=== PATIENT | female | born 1960 | race Asian ===

== ENCOUNTER → 2016-06-28 | Outpatient (CLI) | payer OTHER ==
[~2016-06-28] MED LIST: LEVO25TA PO; MULTTAB58 PO
[2016-06-28 12:41] LABS: BASO % 0.6 %; BASO ABS # 0.04 K/uL (0-0.2); COMPLETE YES; EOS % 3.1 %; HEMATOCRIT 41.8 % (37-47); IG% 0.1 %; LYMPH % 47.5 %; LYMPH ABS # 3.21 K/uL (1.2-3.4); MEAN CELL VOLUME 85.8 fL (80-100); MEAN CORPUSCULAR HEMOGLOBIN 30.8 pg (25-34); MEAN CORPUSCULAR HGB CONC 35.9 g/dl (32-36); MEAN PLATELET VOLUME 11.7 fL (7.4-10.4); MONO % 5.2 %; NEUT % 43.5 %; PLATELET COUNT 234 K/uL (130-400); RED BLOOD COUNT 4.87 M/uL (4.2-5.4); WHITE BLOOD COUNT 6.76 K/uL (4.8-10.8)
[2016-06-28 14:12] LABS: CALCIUM 9.9 mg/dl (8.5-10.1)
[2016-06-28 14:31] LABS: CHLORIDE 104 mmol/L (98-107); POTASSIUM 4.2 mmol/L (3.5-5.1); SODIUM 141 mmol/L (136-145)
[2016-06-28 14:49] LABS: BLOOD UREA NITROGEN 13 mg/dl (7-18); BUN/CREATININE RATIO 18.9 (10-20); CARBON DIOXIDE 26 mmol/L (21-32); CHOLESTEROL 193 mg/dl (0-200); GLUCOSE 92 mg/dl (70-99); URIC ACID 4.7 mg/dl (2.6-7.2)
[2016-06-28 14:51] LABS: ALB/GLOB RATIO 1.1 (0.9-2); ALKALINE PHOSPHATASE 99 U/L (45-117); ALT/SGPT 36 U/L (12-78); AST/SGOT 26 U/L (15-37); CHOLESTEROL/HDL RATIO 5.1; HDL CHOLESTEROL 38 mg/dl; LDL CHOLESTEROL CALCULATED 115 mg/dl; TRIGLYCERIDES 200 mg/dl (0-150); VERY LOW DENSITY LIPOPROT CALC 40 mg/dl
== END | disposition home or self-care (01) ==
LOC: C.LAB1850 11:21
PROVIDERS: ATTEND Nurse Practitioner Adult Health
DX: Z00.00 Encounter for general adult medical examination without abnormal findings (principal); E03.9 Hypothyroidism, unspecified; M79.676 Pain in unspecified toe(s); Z11.59 Encounter for screening for other viral diseases

== ENCOUNTER → 2016-07-11 | Outpatient (CLI) | payer OTHER | END | disposition home or self-care (01) | LOC: C.LAB 11:39 | PROVIDERS: ATTEND Nurse Practitioner Adult Health | DX: E03.9 Hypothyroidism, unspecified (principal) ==

== ENCOUNTER 2016-10-23 13:20 | Emergency (ER) | payer OTHER ==
[~2016-10-23] VITALS: Ht 157.5 cm; Wt 62.0 kg
[~2016-10-23 13:20] MED LIST changes: -LEVO25TA PO
[2016-10-23 13:24] VITALS: TEMP 36.6; Ht 157.5 cm; Wt 62.0 kg
[2016-10-23] MEDS ORDERED: MoRPHine SULFATE 4 MG/ML 1 ML CARP\\VIAL IV STA ×2 (13:44→17:11)
[2016-10-23] MEDS ORDERED: SODIUM CHLORIDE 0.9% 1000ML 1,000 ML IV STA ×2 (13:44→20:00)
--- NOTE | 2016-10-23 13:58 | EMERGENCY ROOM VISIT NOTE ---
History First contact with patient: 13:32 Chief Complaint: HEADACHE Stated Complaint: HEADACHE History of Present Illness The patient is a 56 year old female who presents to the Emergency Room with complaints of severe headache that started at 11 PM last night. The patient does not speak Mohawk well, she declined the use of an production team leader and her son has served as her production team leader at the bedside. The patient reports that the headache started very suddenly when she went outside last night, describes the pain as intense, starting in the back of her head and radiating to the top of the head, worse with movement of the neck, better with rest, 10/24. She did take ibuprofen last night shortly after the headache started, with no improvement, though she does state her headache is slightly improved from last night. Her son states that last night when her headache started she was sweating all over. He took her blood pressure and it was 140/80, which is normal for her. She has not had any associated symptoms of blurry or double vision, nausea or vomiting, dizziness or passing out, neck pain, fevers or chills. She reports history of similar headaches for the past 9 years that she attributes to the cold weather, however she states these headaches usually only last a few minutes to an hour, this is the worst headache that she has ever had. Her son states that she had a similar bad headache in 2007, where she had a workup with brain imaging and everything was normal. She denies any chest pain, shortness of breath, abdominal pain, back pain, dizziness, urinary symptoms. Review of Systems A complete 10 point review of systems was reviewed with the patient with pertinent positives and negatives as per history of present illness. All else were negative. Past Medical/Surgical History Hypothyroidism Social History Smoking Status: Never Smoker Alcohol Use: none Drug Use: none Current/Historical Medications Scheduled Levothyroxine Sodium (Synthroid), 25 MCG PO DAILY Physical Exam Vital Signs Date Time Temp Pulse Resp B/P (MAP) Pulse Ox O2 Delivery O2 Flow Rate FiO2 10/23/16 20:43 69 20 125/75 91 Room Air 10/23/16 18:43 87 22 147/89 97 Room Air 10/23/16 17:22 95 20 167/102 95 Room Air 10/23/16 15:43 70 17 140/78 98 Room Air 10/23/16 15:43 72 10/23/16 15:43 97 Room Air 10/23/16 13:24 36.6 107 18 145/95 97 Room Air Physical Exam CONSTITUTIONAL: No acute distress, but does appear uncomfortable. Well appearing and well nourished. Alert and oriented X 4 with normal affect. HEENT: Normocephalic, atraumatic. Pupils equal, round and reactive to light, EOMI, no nystagmus. No papilledmema noted. TMs normal. Pharynx normal. Moist mucous membranes. NECK: Supple, no rigidity, but does have bilateral posterior neck tenderness and increased pain with range of motion of the neck. RESPIRATORY: Clear to auscultation bilaterally with no wheezing, crackles, rhonchi or stridor. Equal expansion bilaterally. CARDIOVASCULAR: Regular rate and rhythm with no murmurs, rubs or gallops. Normal peripheral perfusion. No edema. GASTROINTESTINAL: Soft, nontender, nondistended. Bowel sounds present in all quadrants. MUSCULOSKELETAL: Full range of motion of all joints without discomfort. INTEGUMENTARY: No rash or other significant dermatologic conditions noted. NEUROLOGIC: Cranial nerves II-XII grossly intact. No focal neurologic deficits noted. Normal strength, normal sensation, normal coordination, normal speech. Negative facial droop, negative pronator drift. Medical Decision & Procedures ER Provider Diagnostic Interpretation: HEAD WITHOUT CONTRAST (CT) CT DOSE: 601.98 mGy.cm HISTORY: Mental status change Evaluate for hemorrhage or pathology TECHNIQUE: Multiaxial CT images of the head were performed without the use of intravenous contrast. A dose lowering technique was utilized adhering to the principles of ALARA. Comparison: None. Findings: The paranasal sinuses and mastoid air cells are clear. The calvarium and skull base are intact. The ventricles and sulci are within normal limits. There is no mass, hematoma, midline shift, or acute infarct. Impression: No acute intracranial abnormality. ----- HEAD ANGIO WITH CONTRAST CLINICAL HISTORY: ANGIO HEAD WITH PER PABLO-C PERIANESTHESIA MANAGER mental status change. Headache. TECHNIQUE: Transaxial acquisition with multi axial reformatted images COMPARISON STUDY: None FINDINGS: All major intracranial vessels are unremarkable. There is no evidence for aneurysm or dissection. There is no significant stenotic change. All major structures the anterior middle and posterior cerebral circulation are unremarkable. Vertebral basilar system is unremarkable. IMPRESSION: Negative study Laboratory Results 10/23/16 14:05 Red Blood Count 4.96, Mean Corpuscular Volume 83.9, Mean Corpuscular Hemoglobin 29.4, Mean Corpuscular Hemoglobin Concent 35.1, Mean Platelet Volume 11.5, Neutrophils (%) (Auto) 65.8, Lymphocytes (%) (Auto) 28.6, Monocytes (%) (Auto) 4.4, Eosinophils (%) (Auto) 0.7, Basophils (%) (Auto) 0.3, Neutrophils # (Auto) 7.02, Lymphocytes # (Auto) 3.05, Monocytes # (Auto) 0.47, Eosinophils # (Auto) 0.08, Basophils # (Auto) 0.03 10/23/16 14:05 Test 10/23/16 14:03 10/23/16 14:05 10/23/16 17:30 Bedside Glucose 114 mg/dl (70-90) White Blood Count 10.67 K/uL (4.8-10.8) Red Blood Count 4.96 M/uL (4.2-5.4) Hemoglobin 14.6 g/dL (12.0-16.0) Hematocrit 41.6 % (37-47) Mean Corpuscular Volume 83.9 fL (80-100) Mean Corpuscular Hemoglobin 29.4 pg (25-34) Mean Corpuscular Hemoglobin Concent 35.1 g/dl (32-36) Platelet Count 267 K/uL (130-400) Mean Platelet Volume 11.5 fL (7.4-10.4) Neutrophils (%) (Auto) 65.8 % Lymphocytes (%) (Auto) 28.6 % Monocytes (%) (Auto) 4.4 % Eosinophils (%) (Auto) 0.7 % Basophils (%) (Auto) 0.3 % Neutrophils # (Auto) 7.02 K/uL (1.4-6.5) Lymphocytes # (Auto) 3.05 K/uL (1.2-3.4) Monocytes # (Auto) 0.47 K/uL (0.11-0.59) Eosinophils # (Auto) 0.08 K/uL (0-0.5) Basophils # (Auto) 0.03 K/uL (0-0.2) RDW Standard Deviation 36.3 fL (36.4-46.3) RDW Coefficient of Variation 12.0 % (11.5-14.5) Immature Granulocyte % (Auto) 0.2 % Immature Granulocyte # (Auto) 0.02 K/uL (0.00-0.02) Prothrombin Time 10.3 SECONDS (9.0-12.0) Prothromb Time International Ratio 1.0 (0.9-1.1) Activated Partial Thromboplast Time 25.4 SECONDS (21.0-31.0) Partial Thromboplastin Ratio 1.0 Anion Gap 6.0 mmol/L (3-11) Est Creatinine Clear Calc Drug Dose 73.4 ml/min Estimated GFR () 104.0 Estimated GFR (Non- 89.7 BUN/Creatinine Ratio 16.6 (10-20) Calcium Level 9.2 mg/dl (8.5-10.1) Troponin I < 0.015 ng/ml (0-0.045) CSF Color RED CSF Appearance CLOUDY CSF WBC 248 /uL (0-5) CSF RBC 888229 /uL (0) CSF Xanthrochromic NO XANTHOCHROMIA CSF Cell Count Tube # 4 CSF Mononuclear WBCs % 49.8 % CSF Polynuclear WBCs (%) 50.2 % CSF Chemistry Tube # 2 CSF Glucose 58 mg/dl (40-70) CSF Total Protein 165.7 mg/dl (15.0-45.0) Medications Administered Medications (Trade) Dose Ordered Sig/Zbigniew Route Start Time Stop Time Status Last Admin Dose Admin Sodium Chloride 1,000 ml @ 999 mls/hr Q1H1M STAT IV 10/23/16 13:44 10/23/16 14:44 DC 10/23/16 13:44 999 MLS/HR Morphine Sulfate (MoRPHine SULFATE INJ) 4 mg NOW STAT IV 10/23/16 13:44 10/23/16 13:47 DC 10/23/16 14:24 4 MG Ondansetron HCl (Zofran Inj) 4 mg NOW STAT IV 10/23/16 15:29 10/23/16 15:30 DC 10/23/16 15:42 4 MG Morphine Sulfate (MoRPHine SULFATE INJ) 4 mg NOW STAT IV 10/23/16 17:11 10/23/16 17:13 DC 10/23/16 17:16 4 MG Ondansetron HCl (Zofran Inj) 4 mg NOW STAT IV 10/23/16 18:38 10/23/16 18:39 DC 10/23/16 18:41 4 MG Dexamethasone Sodium Phosphate (Decadron Inj) 10 mg NOW ONCE IV 10/23/16 20:00 10/23/16 20:01 DC 10/23/16 20:04 10 MG Ceftriaxone Sodium 2000 mg/ Dextrose 70 ml @ 100 mls/hr ONE STAT IV 10/23/16 19:47 10/23/16 20:28 DC 10/23/16 20:32 100 MLS/HR Vancomycin HCl 1250 mg/Sodium Chloride 525 ml @ 200 mls/hr ONE STAT IV 10/23/16 19:47 10/23/16 22:24 10/23/16 20:32 200 MLS/HR Acyclovir Sodium 650 mg/Dextrose 113 ml @ 110 mls/hr Q8H IV 10/23/16 20:00 10/25/16 19:59 10/23/16 20:32 110 MLS/HR Sodium Chloride 1,000 ml @ 125 mls/hr Q8H STAT IV 10/23/16 20:00 10/24/16 03:59 10/23/16 20:33 125 MLS/HR Promethazine HCl 12.5 mg/Sodium Chloride 50.5 ml @ 202 mls/hr 2030 ONCE IV 10/23/16 20:30 10/23/16 20:44 DC 10/23/16 20:32 202 MLS/HR Procedure Lumbar puncture Indication: Sudden severe headache, evaluate for SAH Verbal consent was obtained after the risks and benefits were explained, including but not limited to bleeding/clotting, scarring, infection, pain, and worsening headache. At this time, the risks of the procedure are less than the risks of NOT performing the procedure. A time out was taken and the correct patient and site identified. The patient was placed in the right lateral decubitus position with the lower spine in a flexed position. The lower back was prepped with Betadine and draped in the standard fashion. The intervertebral space was identified, anesthetized locally with 1% buffered lidocaine. The procedure was performed by myself with Dr. Florentino directly supervising. A 22G needle was inserted through the skin between L4 and L5, the needle was slowly advanced until the return of fluid was achieved. There was a small amount of red fluid return that did not flow easily. Attempts at repositioning the needle were unsuccessful. A new spinal needle was obtained, and Dr. Florentino attempted LP at the L3-L4 space, again unsuccessful after multiple attempts. The stylus was replaced prior to removing the needle, and the needle was removed. The patient was then placed in the left lateral decubitus position, repeat Betadine prep and sterile draping in the sterile fashion. Dr. Florentino placed the 22G needle in the L4-L5 space, with return of CSF. Opening pressure was not measured due to difficulty of access. 7 mL of hazy, blood tinged cerebral spinal fluid drained and was collected. The fluid did not clear on subsequent tube collections, and remained hazy and blood tinged. Fluid sent to the lab for evaluation protein, glucose, cell count, culture and sensitivity. The stylus was replaced prior to removing the needle, the needle was then removed and the skin was cleaned with sterile gauze and saline, and a band-aid was placed over the insertion site. The patient tolerated the procedure well and there were no known complications. Patient was instructed to remain in a supine position for at least one hour. ECG Indication: diaphoresis Rate (beats per minute): 81 Rhythm: normal sinus Findings: no acute ischemic change, no ectopy Comparison ECG Date: no prior available Medical Decision CC: Patient presenting with complaint of headache Interpretation of Labs: No leukocytosis, no anemia, no significant electrolyte abnormalities, normal renal function, PTT/PT/INR within normal limits. Negative UA. Negative troponin. Differential Diagnosis: Includes, but not limited to acute intracranial bleed, subarachnoid hemorrhage, CVA, mass or mass effect, tension headache, migraine, among others. Medication Reconciliation: I attest that I have personally reviewed the patient' s current medication list. Vital signs review: I reviewed the patient's vital signs and interpret them as follows: T: Afebrile; BP: Hypertensive; HR: Tachycardic; RR: Within normal limits; Pulse Ox: Within normal limits on room air. Summary: Patient was evaluated at bedside, history of physical exam performed. Patient is alert and in no acute distress, but does appear to be in pain. Her son serves as jacquard twine polisher operator. Neurologic exam is fully intact, no focal deficits. The patient does have tenderness of the upper posterior neck muscles at the base of the occiput, which she states reproduces her headache. Her headache is also worsened with moving her neck side to side. There is no nuchal rigidity or meningismus. This is a 56-year-old pleasant female with no diagnosed history of headaches, who describes a sudden onset of severe headache that is the worst headache she has ever experienced. Orders were placed at bedside for labs, UA, IV fluids for hydration, IV morphine for pain, EKG, CT head to evaluate for intracranial hemorrhage. Patient discussed with Dr. Florentino, who also evaluated the patient and agrees with my assessment and plan. Labs reviewed as above, fairly unremarkable. EKG reviewed, shows normal sinus rhythm with no ischemic changes. CT head without contrast is negative. She did develop symptoms of nausea and vomiting multiple times, she was given IV Zofran for this. I discussed with the patient and her son regarding performing a lumbar puncture to rule out subarachnoid hemorrhage. They agreed to the procedure. Lumbar puncture performed without any significant complications, but did require multiple attempts. See procedure note for details. Due to persistently bloody appearing CSF with minimal clearing during collection , concern for SAH remains high. CTA of the brain with IV contrast ordered. CSF samples concerning for large amounts of RBCs, unclear whether this may represent SAH versus traumatic LP. There is also notably a large amount of WBC' s and elevated protein on CSF, concerning for infection. CTA of the brain reviewed, no aneurysm or intracranial hemorrhage noted. I discussed on the phone with Dr. Bone, neurology, regarding the patient's clinical story, symptoms, and workup thus far. He agrees that she seems very concerning for a possible SAH, and believes she should be transferred to a higher level of care facility for definitive diagnosis with conventional arteriogram. He also agrees with our plan to cover empirically for bacterial and HSV meningitis. I spoke with the transfer center at [facility], Dr. Pritchett, Neurology, who agrees to accept the patient as a direct admission. Patient reassessed multiple times throughout ED stay, she continues to complain of some headache, but states that it is improved from when she arrived after morphine, currently rates as 5/10 as long as she keeps her head still. She has had some continued intermittent nausea/vomiting, she was treated with IV Phenergan for this. The patient and her family members were updated on all results and plan for transfer. They verbalized understanding and are agreeable to this plan. Patient will be kept NPO, maintenance IV fluids were ordered. Patient was stable at time of transfer. Head Trauma GCS Score: 15 Medication Reconcilliation Current Medication List: was personally reviewed by me Blood Pressure Screening Patient's blood pressure: Elevated blood pressure Patient is being transferred for inpatient admission Impression Primary Impression: Headache Additional Impression: CSF abnormal Critical Care I have personally spent greater than 30 minutes of critical care time in the direct management of this patient. This includes bedside care, interpretation of diagnostic studies, and testing, discussion with consultants, patient, and family members, and other required patient management activities. This 30 minutes is in excess of all separately billable procedures. Departure Information Dispostion Transfer Acute Care Facility Condition FAIR Referrals Amanda Castellon C.R.N.P. (PCP) Patient Instructions My [facility] Problem Qualifiers Primary Impression: Headache Headache type: unspecified Headache chronicity pattern: acute headache Intractability: intractable Qualified Codes: R51 - Headache
[2016-10-23] MEDS ORDERED: LEVO25TA PO (14:04)
[2016-10-23 14:21] LABS: BASO % 0.3 %; BASO ABS # 0.03 K/uL (0-0.2); COMPLETE YES; EOS % 0.7 %; HEMATOCRIT 41.6 % (37-47); IG% 0.2 %; LYMPH % 28.6 %; LYMPH ABS # 3.05 K/uL (1.2-3.4); MEAN CELL VOLUME 83.9 fL (80-100); MEAN CORPUSCULAR HEMOGLOBIN 29.4 pg (25-34); MEAN CORPUSCULAR HGB CONC 35.1 g/dl (32-36); MEAN PLATELET VOLUME 11.5 fL (7.4-10.4); MONO % 4.4 %; NEUT % 65.8 %; PLATELET COUNT 267 K/uL (130-400); RED BLOOD COUNT 4.96 M/uL (4.2-5.4); WHITE BLOOD COUNT 10.67 K/uL (4.8-10.8)
[2016-10-23 14:35] LABS: BUN/CREATININE RATIO 16.6 (10-20); CALCIUM 9.2 mg/dl (8.5-10.1); CREATININE 0.75 mg/dl (0.60-1.20); POTASSIUM 3.6 mmol/L (3.5-5.1); PROTHROMBIN TIME (PATIENT) 10.3 SECONDS (9.0-12.0)
[2016-10-23] MEDS ORDERED: ONDANSETRON INJ 2 MG/ML 2 ML VIAL IV STA ×2 (15:29→18:38)
--- NOTE | 2016-10-23 15:30 | DIAGNOSTIC IMAGING REPORT ---
HEAD WITHOUT CONTRAST (CT) CT DOSE: 601.98 mGy.cm HISTORY: Mental status change Evaluate for hemorrhage or pathology TECHNIQUE: Multiaxial CT images of the head were performed without the use of intravenous contrast. A dose lowering technique was utilized adhering to the principles of ALARA. Comparison: None. Findings: The paranasal sinuses and mastoid air cells are clear. The calvarium and skull base are intact. The ventricles and sulci are within normal limits. There is no mass, hematoma, midline shift, or acute infarct. Impression: No acute intracranial abnormality. The above report was generated using voice recognition software. It may contain grammatical, syntax or spelling errors. Electronically signed by: Jun De La O M.D. 10/23/2016 3:28 PM Dictated Date/Time: 10/23/2016 3:28 PM
[2016-10-23 15:43] VITALS: O2SAT 97
[2016-10-23] MEDS ORDERED: XYLOCAINE 1%/SOD BICARB 20 ML VIAL INFIL ONE (16:14)
--- NOTE | 2016-10-23 17:24 | EMERGENCY ROOM VISIT NOTE ---
ED Visit Note First contact with patient: 13:32 The patient was seen and examined with CELESTINE Landa. I agree with the history, physical and findings. Please see the note for disposition and details. Patient's history was very concerning for headache. CT imaging was negative. Lumbar puncture was felt to be necessary to further elucidate the cause. The patient consented to the procedure. Initially Erin attempted the procedure but was unsuccessful. I assisted and after repositioning the patient had the lumbar puncture performed. CSF was obtained however it was bloody. The patient was treated with morphine, Zofran, and Phenergan. The CSF studies showed significant amount of red blood cells. She did have white blood cell elevation and a significant elevation of protein. Atraumatic tap was possible as there were several attempts however she had a significant elevation of the red blood cells. This did raise concerns for possible subarachnoid. Subarachnoid was possible by history. Neurology was consulted and antibiotics/ antivirals were ordered. Neurology felt further workup for subarachnoid by history and the blood in the CSF was deemed appropriate. During the laboratory analysis a CTA was performed and did not reveal any evidence of aneurysm. The chance is small however given the findings and history she will need further evaluation. After discussion with the patient and family they agreed to transfer to a tertiary care facility. Given the patient's insurance and need for the closest available and appropriate facility [facility] was chosen. Consultation was made with [facility] and the patient was accepted for transfer. Prior to transfer the patient did receive Decadron, Rocephin, vancomycin and acyclovir. Lumbar Puncture Indication: Headache. Verbal consent was obtained . At this time, the risks of the procedure are less than the risks of NOT performing the procedure. A time out was taken and the correct patient and site identified. The patient was placed in the left lateral position and the back was prepped with betadine and draped in the standard fashion. The L3 intervertebral space was identified, anesthetized locally with 1 % lidocaine without epinephrine, and the spinal needle was inserted through the skin with the bevel parallel to the dural fibers. The needle was carefully advanced into the lumbar cistern and 4 tubes of bloody CSF was obtained. The stylet was replaced and the needle was removed. A bandaid was placed and the patient was placed in the supine position. The patient tolerated the procedure well and there were no complications. Erin and I have personally spent greater than 30 minutes of critical care time in the direct management of this patient. This includes bedside care, interpretation of diagnostic studies, and testing, discussion with consultants, patient, and family members, and other required patient management activities. This 30 minutes is in excess of all separately billable procedures.
[2016-10-23] MEDS ORDERED: OPTIRAY 320 IV PRN (18:30)
[2016-10-23] MEDS ORDERED: ONDANSETRON INJ 2 MG/ML 2 ML VIAL ONE (18:39)
[2016-10-23 18:45] LABS: CSF APPEARANCE CLOUDY; CSF COLOR RED; CSF MONONUC RELAT 49.8 %
[2016-10-23 18:46] LABS: CSF APPEARANCE CLOUDY; CSF COLOR RED; CSF MONONUC RELAT 47.4 %; CSF XANTHOCHROMIC NO XANTHOCHROMIA
[2016-10-23 18:47] LABS: CSF TOTAL PROTEIN 165.7 mg/dl (15.0-45.0)
[2016-10-23 18:57] LABS: CSF CHEMISTRY TUBE # 2
--- NOTE | 2016-10-23 19:03 | DIAGNOSTIC IMAGING REPORT ---
HEAD ANGIO WITH CONTRAST CLINICAL HISTORY: ANGIO HEAD WITH PER PABLO-C UTILITY WORKER mental status change. Headache. TECHNIQUE: Transaxial acquisition with multi axial reformatted images COMPARISON STUDY: None FINDINGS: All major intracranial vessels are unremarkable. There is no evidence for aneurysm or dissection. There is no significant stenotic change. All major structures the anterior middle and posterior cerebral circulation are unremarkable. Vertebral basilar system is unremarkable. IMPRESSION: Negative study The above report was generated using voice recognition software. It may contain grammatical, syntax or spelling errors. Electronically signed by: Jun De La O M.D. 10/23/2016 7:01 PM Dictated Date/Time: 10/23/2016 6:56 PM
[2016-10-23] MEDS ORDERED: VANCOMYCIN INJ 1,250 MG in SODIUM CHLORIDE 0.9% 500ML 500 ML IV STA (19:47)
[2016-10-23] MEDS ORDERED: CEFTRIAXONE SOD INJ 2,000 MG in DEXTROSE 5% 50ML 50 ML IV STA (19:47)
[2016-10-23] MEDS ORDERED: ACYCLOVIR SOD INJ 650 MG in DEXTROSE 5% 100ML 100 ML IV SCH (20:00)
[2016-10-23] MEDS ORDERED: DEXAMETHASONE SOD INJ 10 MG/ML VIAL IV ONE (20:00)
[2016-10-23] MEDS ORDERED: NURSING VERBAL MED ORDER ONE (20:15)
[2016-10-23] MEDS ORDERED: PROMETHAZINE HCL INJ 12.5 MG in SODIUM CHLORIDE 0.9% 50ML 50 ML IV ONE (20:30)
[2016-10-24] MEDS ORDERED: LABETALOL HCL IV 5 MG/ML 20ML IV ONE (02:37)
[2016-10-24 03:15] VITALS: BP 102/66; PULSE 77; O2SAT 98
== END 2016-10-24 03:15 | disposition short-term general hospital (02) ==
LOC: C.EDB 13:21
DX: R51 Headache (principal); R83.9 Unspecified abnormal finding in cerebrospinal fluid; E03.9 Hypothyroidism, unspecified; Z79.899 Other long term (current) drug therapy

== ENCOUNTER → 2017-02-22 | Outpatient (CLI) | payer OTHER ==
[~2017-02-22] MED LIST changes: +LEVO25TA PO; -MULTTAB58 PO
[2017-02-22 16:47] LABS: BASO % 0.3 %; BASO ABS # 0.02 K/uL (0-0.2); EOS % 3.1 %; EOS ABS # 0.22 K/uL (0-0.5); HEMATOCRIT 39.1 % (37-47); HEMOGLOBIN 14.2 g/dL (12.0-16.0); IG# 0.01 K/uL (0.00-0.02); LYMPH % 49.1 %; LYMPH ABS # 3.45 K/uL (1.2-3.4); MEAN CELL VOLUME 84.4 fL (80-100); MEAN CORPUSCULAR HEMOGLOBIN 30.7 pg (25-34); MEAN CORPUSCULAR HGB CONC 36.3 g/dl (32-36); MEAN PLATELET VOLUME 12.6 fL (7.4-10.4); MONO % 6.1 %; MONO ABS # 0.43 K/uL (0.11-0.59); NEUT % 41.3 %; NEUT ABS # 2.89 K/uL (1.4-6.5); PLATELET COUNT 210 K/uL (130-400); RED CELL DISTRIBUTION WIDTH CV 12.1 % (11.5-14.5); RED CELL DISTRIBUTION WIDTH SD 37.1 fL (36.4-46.3); WHITE BLOOD COUNT 7.02 K/uL (4.8-10.8)
[2017-02-22 17:12] LABS: ALBUMIN 3.8 gm/dl (3.4-5.0); ALT/SGPT 39 U/L (12-78); AST/SGOT 25 U/L (15-37); BLOOD UREA NITROGEN 13 mg/dl (7-18); CALCIUM 8.9 mg/dl (8.5-10.1); CARBON DIOXIDE 26 mmol/L (21-32); CREATININE 0.59 mg/dl (0.60-1.20); GLUCOSE 99 mg/dl (70-99); SODIUM 137 mmol/L (136-145)
[2017-02-22 17:22] LABS: ALKALINE PHOSPHATASE 110 U/L (45-117)
== END | disposition home or self-care (01) ==
LOC: C.LAB1850 15:12
PROVIDERS: ATTEND Nurse Practitioner Adult Health
DX: H57.8 Other specified disorders of eye and adnexa (principal); Z11.59 Encounter for screening for other viral diseases

== ENCOUNTER → 2017-05-18 | Outpatient (CLI) | payer OTHER ==
[2017-05-18 12:33] LABS: BASO % 0.4 %; BASO ABS # 0.03 K/uL (0-0.2); EOS % 2.6 %; EOS ABS # 0.18 K/uL (0-0.5); HEMATOCRIT 39.3 % (37-47); HEMOGLOBIN 14.3 g/dL (12.0-16.0); IG# 0.01 K/uL (0.00-0.02); LYMPH % 45.8 %; LYMPH ABS # 3.17 K/uL (1.2-3.4); MEAN CORPUSCULAR HEMOGLOBIN 30.6 pg (25-34); MEAN CORPUSCULAR HGB CONC 36.4 g/dl (32-36); MEAN PLATELET VOLUME 12.1 fL (7.4-10.4); MONO % 5.5 %; MONO ABS # 0.38 K/uL (0.11-0.59); NEUT % 45.6 %; NEUT ABS # 3.15 K/uL (1.4-6.5); PLATELET COUNT 208 K/uL (130-400); RED CELL DISTRIBUTION WIDTH CV 12.5 % (11.5-14.5); RED CELL DISTRIBUTION WIDTH SD 37.9 fL (36.4-46.3); WHITE BLOOD COUNT 6.92 K/uL (4.8-10.8)
[2017-05-18 13:04] LABS: ALBUMIN 3.9 gm/dl (3.4-5.0); ALT/SGPT 44 U/L (12-78); BLOOD UREA NITROGEN 13 mg/dl (7-18); CALCIUM 8.8 mg/dl (8.5-10.1); CARBON DIOXIDE 29 mmol/L (21-32); CREATININE 0.75 mg/dl (0.60-1.20); GLUCOSE 103 mg/dl (70-99); POTASSIUM 3.9 mmol/L (3.5-5.1); SODIUM 139 mmol/L (136-145)
[2017-05-18 13:15] LABS: ALKALINE PHOSPHATASE 102 U/L (45-117); AST/SGOT 31 U/L (15-37); TOTAL PROTEIN 7.9 gm/dl (6.4-8.2)
== END | disposition home or self-care (01) ==
LOC: C.LAB1850 11:35
PROVIDERS: ATTEND Nurse Practitioner Family
DX: R53.83 Other fatigue (principal)

== ENCOUNTER → 2017-05-20 | Outpatient (CLI) | payer OTHER ==
[~2017-05-20] MED LIST changes: +GADAVIST IV PRN
--- NOTE | 2017-05-20 17:34 | DIAGNOSTIC IMAGING REPORT ---
MRI OF THE BRAIN WITHOUT AND WITH IV CONTRAST CLINICAL HISTORY: R51 right-sided headaches COMPARISON STUDY: CT scan dated 10/23/2016 TECHNIQUE: MRI of the brain was performed from the vertex to the skull base utilizing various T1 and T2 weighted sequences. Following the IV administration of 6.5 mL of Gadavist contrast, additional enhanced images were obtained. FINDINGS: Sagittal T1, axial diffusion, proton density and T2 weighted axial, coronal FLAIR, and pre and post axial T1-weighted images were acquired. These were supplemented with post gadolinium coronal T1 weighted images. No intra or extra-axial mass lesions are visualized. Axial diffusion-weighted images reveal no evidence of acute or subacute infarction. There is no evidence of ventricular dilatation. Proton density T2-weighted and FLAIR images reveal minimal scattered foci of increased T2 signal within the white matter, likely on a small vessel basis. There are no abnormal flow voids. There is no evidence of pathologic enhancement. IMPRESSION: 1. No acute intracranial findings 2. No evidence of acute or subacute infarction 3. No evidence of intracranial mass 4. There are few nonspecific foci of increased T2 and FLAIR signal within the white matter, the largest of which measures 3.5 mm and is located within the right frontal white matter. These are likely on a small vessel basis, but have also been reported in patients with chronic headaches. Electronically signed by: Barrera Chang M.D. 05/20/2017 5:33 PM Dictated Date/Time: 05/20/2017 5:29 PM
== END | disposition home or self-care (01) ==
LOC: C.MRI 16:18
PROVIDERS: ATTEND Nurse Practitioner Family
DX: R51 Headache (principal)

== ENCOUNTER → 2017-06-23 | Outpatient (CLI) | payer OTHER ==
[~2017-06-23] MED LIST changes: -GADAVIST IV PRN
--- NOTE | 2017-06-24 07:49 | MAMMOGRAPHY REPORT ---
BILATERAL DIGITAL SCREENING MAMMOGRAM TOMOSYNTHESIS WITH CAD: 06/23/2017 CLINICAL HISTORY: Routine screening. Patient has no complaints. TECHNIQUE: Breast tomosynthesis in addition to standard 2D mammography was performed. Current study was also evaluated with a Computer Aided Detection (CAD) system. COMPARISON: Comparison is made to exam dated: 10/23/2014 mammogram - [facility]. BREAST COMPOSITION: The tissue of both breasts is heterogeneously dense, which may obscure small mas ses. FINDINGS: No suspicious masses, calcifications, or areas of architectural distortion are noted in ei ther breast. There has been no significant interval change compared to prior exams. Scattered bilater al benign-appearing calcifications are not significantly changed. A biopsy clip is again noted withi n the right posterior breast on the MLO view. IMPRESSION: ACR BI-RADS CATEGORY 2: BENIGN There is no mammographic evidence of malignancy. A 1 year screening mammogram is recommended. The pa tient will receive written notification of the results. Approximately 10% of breast cancers are not detected with mammography. A negative mammographic report should not delay biopsy if a clinically suggestive mass is present. Monica Cardona M.D. ah/:06/23/2017 15:02:30 Inspector Production Plastic Parts: Lizzette [facility]N(Karl)(Tyson)(BD), [facility] letter sent: Normal 1/2 BI-RADS Code: ACR BI-RADS Category 2: Benign
== END | disposition home or self-care (01) ==
LOC: C.MAMM 14:24
PROVIDERS: ATTEND Family Medicine
DX: Z12.31 Encounter for screening mammogram for malignant neoplasm of breast (principal)